=== PATIENT | male | born 1975 | race Caucasian/White ===

== ENCOUNTER 2022-05-23 07:56 | Emergency (ER) | payer BC ==
[2022-05-23] MEDS ORDERED: Sodium Chloride 0.9% 1,000 ML IV ONE (08:15)
[2022-05-23] MEDS ORDERED: Alum Hydro/Mag Hydro/Simeth XS 15 ML, Lidocaine 2% 5 ML PO ONE ×2 (08:15)
[2022-05-23] MEDS ORDERED: Famotidine 20 MG/2 ML SDV IVPUSH ONE (08:15)
[2022-05-23 09:07] LABS: CARBON DIOXIDE,CO2 26.5 mmol/L (21.0-32.0); POTASSIUM,K 4.7 mmol/L (3.5-5.1)
== END 2022-05-23 09:31 | disposition home or self-care (01) ==
LOC: MW.ED 07:56
DX: K29.70 Gastritis, unspecified, without bleeding (principal); Z72.0 Tobacco use
CPT/HCPCS: 36415; 80053; 81003; 83690; 83735; 84484; 85025; 93005; 96361; 96374; 99284; A9270; J3490; J7030

== ENCOUNTER 2022-07-05 10:19 | Day surgery (SDC) | payer BC ==
[~2022-07-05 10:19] MED LIST: Lactated Ringers 1,000 ML IV SCH; Lidocaine 2% 5 ML SDV ONE; Propofol 200 MG/20 ML SDV ONE; Sodium Chloride 0.9% 10 ML Syringe FLUSH PRN; Sodium Chloride 0.9% 2.5 ML Syringe FLUSH PRN; Sodium Chloride 0.9% 20 ML SDV IV PRN; fentaNYL 100 MCG/2 ML SDV ONE
[2022-07-05] MEDS ORDERED: Lactated Ringers 1,000 ML IV SCH (12:00)
== END 2022-07-05 12:12 | disposition home or self-care (01) ==
LOC: MW.SDS 10:19
PROVIDERS: ATTEND Surgery
DX: K29.50 Unspecified chronic gastritis without bleeding (principal); K21.00 Gastro-esophageal reflux disease with esophagitis, without bleeding; K31.89 Other diseases of stomach and duodenum; K22.89 Other specified disease of esophagus; F17.210 Nicotine dependence, cigarettes, uncomplicated; G89.29 Other chronic pain; Z98.890 Other specified postprocedural states
CPT/HCPCS: 43239; J2704; J3010; J7120; 00731; J3490

== ENCOUNTER 2022-11-18 08:59 | Day surgery (SDC) | payer BC ==
[~2022-11-18 08:59] MED LIST changes: -Lidocaine 2% 5 ML SDV ONE; -Propofol 200 MG/20 ML SDV ONE; -Sodium Chloride 0.9% 10 ML Syringe FLUSH PRN; -Sodium Chloride 0.9% 2.5 ML Syringe FLUSH PRN; -Sodium Chloride 0.9% 20 ML SDV IV PRN; -fentaNYL 100 MCG/2 ML SDV ONE; +propofoL 50 ML ONE
[2022-11-18] MEDS ORDERED: propofoL 50 ML ONE (11:48)
[2022-11-18] MEDS ORDERED: Lactated Ringers 1,000 ML IV SCH (12:15)
== END 2022-11-18 12:39 | disposition home or self-care (01) ==
LOC: MW.SDS 08:59
PROVIDERS: ATTEND Surgery
DX: Z12.11 Encounter for screening for malignant neoplasm of colon (principal); K57.30 Diverticulosis of large intestine without perforation or abscess without bleeding; G89.29 Other chronic pain; R10.13 Epigastric pain; K21.9 Gastro-esophageal reflux disease without esophagitis; K22.70 Barrett's esophagus without dysplasia; K31.89 Other diseases of stomach and duodenum; F17.210 Nicotine dependence, cigarettes, uncomplicated; E66.9 Obesity, unspecified; Z80.0 Family history of malignant neoplasm of digestive organs; Z79.899 Other long term (current) drug therapy; Z79.82 Long term (current) use of aspirin; Z68.32 Body mass index [BMI] 32.0-32.9, adult
CPT/HCPCS: 45378; J2704; J7120

== ENCOUNTER 2024-08-09 09:27 | Day surgery (SDC) | payer BC ==
[~2024-08-09 09:27] MED LIST changes: -Lactated Ringers 1,000 ML IV SCH; +Lidocaine 2% 5 ML SDV ONE; +Propofol 200 MG/20 ML SDV ONE; -propofoL 50 ML ONE
[2024-08-09] MEDS: Lactated Ringers 1,000 ML IV SCH (09:55)
[2024-08-09] MEDS ORDERED: Midazolam 1 MG/ML 2 ML SDV ONE (10:28)
[2024-08-09] MEDS ORDERED: propofoL 500 MG/50 ML 50 ML ONE (10:57)
[2024-08-09] MEDS ORDERED: Lactated Ringers 1,000 ML IV SCH (11:15)
== END 2024-08-09 12:00 | disposition home or self-care (01) ==
LOC: MW.SDS 09:27
PROVIDERS: ATTEND Surgery
DX: K21.00 Gastro-esophageal reflux disease with esophagitis, without bleeding (principal); K31.89 Other diseases of stomach and duodenum; Z79.899 Other long term (current) drug therapy
CPT/HCPCS: 43239; J2003; J2250; J2704; J7120; 00731